=== PATIENT | female | born 1970 | race Hispanic/Latino ===

== ENCOUNTER → 2017-12-21 | Outpatient (CLI) | payer OTHER ==
[~2017-12-21] MED LIST: ASPI1TAB14 PO; CHOL500050 PO; IBUP-2077 PO; METF500T6 PO
== END | disposition home or self-care (01) ==
LOC: OIH 11:04
PROVIDERS: ATTEND Internal Medicine
DX: M47.896 Other spondylosis, lumbar region (principal)
CPT/HCPCS: 72110